=== PATIENT | female | born 1980 | race Two or more races ===

== ENCOUNTER 2019-02-02 13:36 | Emergency (ER) | payer MEDICAID, OTHER ==
[~2019-02-02] VITALS: Ht 165.1 cm; Wt 71.7 kg
--- NOTE | 2019-02-02 13:50 | NUR ---
ED Nurse Note: Patient walked into ED c/o pressure sensation and pain on the left upper chest , numbness on the back of her neck and left side of her neck since 01/29/19. patient reports tingling sensations on the right hand. patient is alert awake x4 ambulatory steady gait, breathing unlabored and even, speaking in full sentences.
[2019-02-02 13:53] VITALS: BP 120/72
[2019-02-02 14:04] VITALS: BP 107/67
[2019-02-02 14:30] VITALS: BP 107/67
--- NOTE | 2019-02-02 14:30 | NUR ---
ER DISCHARGE NOTE: Patient is cleared to be discharged per ERMD DR WINSTON, pt is aox4, on room air, with stable vital signs. pt was given dc instructions, pt was able to verbalize understanding to follow up with primary doctor, pt id band removed without complications. pt is able to ambulate with steady gait. pt took all belongings.
--- NOTE | 2019-02-02 16:21 | Emergency Room Report ---
History of Present Illness General Chief Complaint: Chest Pain Source: Patient Present Illness HPI 38-year-old female presents ED for evaluation. Patient states she is been having chest pain and numbness to her back of her head since Thursday. Denies chest pain at this time. Denies headache. Denies photophobia or blurry vision. Denies neck stiffness. Describes tingling sensation in her hands. Denies neck pain. States that she has been having problems with her . Denies alcohol or drug use. No other aggravating relieving factors. Denies any other associated symptoms Allergies: Coded Allergies: No Known Allergies (Unverified , 02/02/19) Patient History Past Medical History: none Past Surgical History: none Pertinent Family History: none Social History: Denies: smoking, alcohol use, drug use Last Menstrual Period: 01/17/19 Now: No Immunizations: UTD Reviewed Nursing Documentation: PMH: Agreed; PSxH: Agreed Nursing Documentation-PMH Past Medical History: No History, Except For Hx Cardiac Problems: No - high cholesterol Review of Systems All Other Systems: negative except mentioned in HPI Physical Exam Vital Signs Date Time Temp Pulse Resp B/P (MAP) Pulse Ox O2 Delivery O2 Flow Rate FiO2 02/02/19 13:40 98.4 77 16 123/76 (92) 97 Room Air Sp02 EP Interpretation: reviewed, normal General Appearance: no apparent distress, alert, GCS 15, non-toxic Head: normocephalic, atraumatic Eyes: bilateral eye normal inspection, bilateral eye PERRL ENT: hearing grossly normal, normal pharynx, no angioedema, normal voice Neck: full range of motion, supple/symm/no masses Respiratory: chest non-tender, lungs clear, normal breath sounds, speaking full sentences Cardiovascular #1: regular rate, rhythm, no edema Cardiovascular #2: 2+ carotid (R), 2+ carotid (L), 2+ radial (R), 2+ radial (L) , 2+ dorsalis pedis (R), 2+ dorsalis pedis (L) Gastrointestinal: normal bowel sounds, non tender, soft, non-distended, no guarding, no rebound Rectal: deferred Genitourinary: normal inspection, no CVA tenderness Musculoskeletal: back normal, gait/station normal, normal range of motion, non- tender Neurologic: alert, oriented x3, responsive, ladies underwear operator III-XII nml as tested, motor strength/tone normal, sensory intact, speech normal Psychiatric: judgement/insight normal, memory normal, mood/affect normal, no suicidal/homicidal ideation Reflexes: 3+ bicep (R), 3+ bicep (L), 3+ tricep (R), 3+ tricep (L), 3+ knee (R) , 3+ knee (L) Skin: no rash Lymphatic: no adenopathy Medical Decision Making Diagnostic Impression: Primary Impression: Anxiety Additional Impression: Chest pain Qualified Codes: R07.9 - Chest pain, unspecified ER Course Hospital Course 38 yo F presents with chest pain, numbness to head and fingers. Differential diagnoses include: WI/unstable angina, CVA/TIA, dehydration, anxiety Clinical course Patient placed on stretcher. on mortgage counselor. After initial history , physical exam reveals female in no acute distress. Cranial nerves II through XII intact. No focal deficits. No nuchal rigidity. Remainder of exam unremarkable. 5 out of 5 strength all extremities. No sensory deficits. EKGnormal sinus rhythm no acute ischemic changes interpreted by me. I discussed findings with patient. Vitals stable. No cardiac risk factors. Exam unremarkable. Likely anxiety as patient is describing stressors at home. Will discharge to home. States she has a PMD I. I feel this is a highly complex case requiring extensive working including EKG/Rhythm strip, Xray/CT/US, Blood/urine lab work, repeat exams while in ED, and administration of strong opiates/narcotics for pain control, admission to hospital or close patient follow up. Diagnosis - anxiety, chest pain Stable and discharged to home. Followup with PMD. Return to ED if symptoms recur or worse EKG Diagnostic Results Rate: normal Rhythm: NSR ST Segments: other ASA given to the pt in ED: No Rhythm Strip Diag. Results EP Interpretation: yes Rhythm: NSR, no PVC's, no ectopy Last Vital Signs Date Time Temp Pulse Resp B/P (MAP) Pulse Ox O2 Delivery O2 Flow Rate FiO2 02/02/19 14:30 98.4 67 14 107/67 98 Room Air Status: improved Disposition: HOME, SELF-CARE Condition: Stable Scripts Unable to Obtain Active Prescriptions or Reported Meds Referrals: NON PHYSICIAN (PCP) [facility] Patient Instructions: Panic Attacks, [id number] Dago Hinton MD Feb 02, 2019 16:21
== END 2019-02-02 14:30 | disposition home or self-care (01) ==
LOC: EMR 14:00
DX: F41.9 Anxiety disorder, unspecified (principal); R07.9 Chest pain, unspecified; E78.00 Pure hypercholesterolemia, unspecified
CPT/HCPCS: 93005; Z7502; 99283